=== PATIENT | male | born 1990 | race Hispanic/Latino ===

== ENCOUNTER → 2020-06-21 | Day surgery (SDC) | payer BC, OTHER ==
[~2020-06-21] MED LIST: HYOSCYAMINE 0.125 MG TAB ONE; LIDOCAINE HCL 2% LOCAL INJ 5 ML SDV VIAL INJ ONE; PROPOFOL IV EMULSION 10 MG/ML 20 ML VIAL ONE
[2020-06-21 12:35] VITALS: BP 106/74
--- NOTE | 2020-06-21 15:14 | Operative Report ---
DATE OF PROCEDURE: 06/21/2020 SURGEON: Usman Aguirre MD REFERRING PHYSICIAN: Dr. Rolando Lomas. INDICATIONS FOR COLONOSCOPY: Rectal bleeding. MEDICATIONS: The patient was done under MAC. Please see anesthesiologist's note. PROCEDURE IN DETAIL: With the patient in the left lateral decubitus position, flexible fiberoptic Olympus colonoscope was inserted into the rectum with ease and advanced all the way to the cecum. Mucosa overlying the cecum appeared to be within normal limits. The scope was then withdrawn slowly and mucosa overlying the ascending and the transverse appeared to be within normal limits. Mild patchy inflammatory changes were noted in the left colon and the rectum and random biopsies were obtained. The scope was then retroflexed into the distal rectum. Small internal hemorrhoids were noted none of which was actively bleeding. The scope was then straightened out, it was subsequently withdrawn. A small anal fissure was noted in the way out without active bleeding. The patient tolerated procedure well. IMPRESSION: 1. Mild inflammatory changes left colon and rectum, biopsies obtained. 2. Internal hemorrhoids none actively bleeding. 3. Anal fissure. PLAN: Followup histology. Start hydrocortisone acetate suppositories 25 mg b.i.d. x10 days, then p.r.n. Initiate high-fiber, low-fat diet. Initiate high-fiber supplement. Thank you very much. Usman Aguirre MD [facility] /[id number] cc: Rolando Lomas DO
== END | disposition home or self-care (01) ==
LOC: OR 09:55
PROVIDERS: ATTEND Internal Medicine Gastroenterology
DX: K62.5 Hemorrhage of anus and rectum (principal); K64.8 Other hemorrhoids; K60.2 Anal fissure, unspecified; K63.89 Other specified diseases of intestine; F41.9 Anxiety disorder, unspecified; Z01.812 Encounter for preprocedural laboratory examination; Z11.59 Encounter for screening for other viral diseases
CPT/HCPCS: 45380; J2001; J2704; U0002; 45378